=== PATIENT | male | born 1980 | race Caucasian/White ===

== ENCOUNTER 2023-07-23 08:39 | Emergency (ER) | payer BC, SELFPAY ==
[2023-07-23 08:48] VITALS: BP 130/92
--- NOTE | 2023-07-23 11:14 | ED.GENMED ---
History of Present Illness
General
Chief Complaint: Breathing Problem
Source: patient
Exam Limitations: none
Time Seen by Provider: 07/23/23 11:14
Nursing documentation reviewed up to this point in time: agreed with
Travel History
Have you had any contact with someone who has COVID-19?: No
Do you have any symptoms of coronavirus? Fever > 100 degrees, chills, cough, shortness of breath, sore throat, loss of taste or smell, muscle aches, or headache?: No
History of Present Illness
History of Present Illness:
43-year-old male with no past medical history presenting to the emergency department today with concerns of low pulse ox. Patient states that he has had a productive cough and fevers and body aches for the past few days. Patient went to urgent
care yesterday and was diagnosed with pneumonia and started on Levaquin. Patient states that he was told to report to the emergency department should he have a pulse ox below 93. Patient states that at times she will feel a bit short of breath but
in general feels well. Patient notes that sometimes he will get lightheaded and believes this is related to the fever. Patient denies any redness, swelling, or pain legs. Patient denies any abdominal pain, nausea, vomiting. Patient denies any
chest pain, hemoptysis.
Review of Systems
Review of Systems
All Other Systems: ROS reviewed and negative except as documented in HPI and ROS
Phy Exam
Physical Exam
Physical Exam:
General: Patient is well appearing and in no acute distress; non-toxic
Skin: Warm and dry, no rashes or lesions
Head: Normocephalic, atraumatic.
Eyes: Sclera non-icteric. EOMs intact. PERRLA.
Cardiac: Regular rate and rhythm, no murmurs
Peripheral Vascular: No lower extremity swelling or edema
Pulm: Normal respiratory effort, diffuse rhonchi appreciated that clears with coughing
Abdomen: No abdominal tenderness to palpation
Neuro: CN II-XII intact, no focal neurologic deficits.
Psychiatric: Appropriate mood and affect.
Course
Orders/Labs/Results
Orders:
Orders
07/23/23 08:56
Chest [CR Chest - 2 Views ] Urgent
Comment:
Reason For Exam: SOB
07/23/23 08:56
07/23/23 08:56
Vital Signs
Initial and Last Documented VS:
Initial Vital Signs
Temp Pulse Resp BP Pulse Ox
98.5 F 93 18 130/92 96
07/23/23 08:48 07/23/23 08:48 07/23/23 08:48 07/23/23 08:48 07/23/23 08:48
Last Documented Vital Signs
Temp Pulse Resp BP Pulse Ox
98.5 F 93 18 130/92 96
07/23/23 08:48 07/23/23 08:48 07/23/23 08:48 07/23/23 08:48 07/23/23 08:48
MDM/Problems Addressed
Differential Diagnosis Includes:
pneumonia
MDM/Problems Addressed:
low pulse ox
Chronic conditions affecting care:
n/a
Acute Exacerbation and/or Progression of Chronic Illness:
n/a
*Radiology
Radiology exam reviewed: preliminary read by ED provider (lower lobe infiltrate noted in lateral view)
*Pulse Oximetry
Patient hypoxic: no
*Critical Care Note
Total Time (30-74mins, 75-104mins- exclusive of procedures): Not Applicable
Data Reviewed
Review of Other/Old Records Reveals: Records (no previous ER records to review) and Discharge Summary (no discharge summaries to review in [facility])
Source: patient
Prescriptions/Medications Considered But Not Given:
Considered course of steroids
Patient Management
Escalation/DeEscalation of care consider admission/obs:
43-year-old male with no past medical history presenting to the emergency department today with concerns of low pulse ox. Patient has no pneumonia and is on day 2 of Levaquin. He was told report to emergency department should his pulse ox dropped
below 93%. Patient has significant shortness of breath, he is very well-appearing, does have rhonchi noted on exam but is not appear to be in any acute respiratory distress. Patient has exercise-induced asthma when he was younger and still has
some albuterol inhalers left over. I advised patient to continue to monitor symptoms and to continue his Levaquin. Patient was advised to try using his albuterol. No indication for labs at this time. Reviewed case with my attending .
Berenice who is in agreement with plan and also personally evaluated patient. Return precautions given, patient stable for discharge
ED Attending Note
-
Portions of this chart may have been created with voice recognition software.� Occasional wrong word or��sound alike� substitutions may have occurred due to the inherent limitations of voice recognition software.
Discharge Plan
Departure
Patient Disposition: Home (Routine Discharge)
Date of Disposition: 07/23/23
Time of Disposition: 11:50
Patient with high blood pressure during this ER visit?: Yes
Condition: Good
Discharge Problem:
Community acquired pneumonia
Instructions: Pneumonia in adults, BLOOD PRESSURE
Referrals:
Tru Moore, [Family Provider] -
Activity Restrictions/Additional Instructions:
Please continue Levaquin as directed. Please stay well hydrated.
Please return to the emergency department if you experience chest pain, shortness of breath, intractable fevers, coughing up blood, or any other concerning signs or symptoms.
Please follow up with your primary care provider in one week.
Interventions
Interventions:
*Risk Screen - Suicide Last Done: 07/23/23 12:04
*General Assessment Last Done: 07/23/23 12:04
*Neglect/Abuse Screening Last Done: 07/23/23 12:04
ED- Fall Risk Assessment Last Done: 07/23/23 12:04
*ED COVID-19 Vaccine History Last Done: 07/23/23 12:04
*Nursing Disposition Last Done: 07/23/23 12:04
ED- Cardiac Assessment Last Done: 07/23/23 12:04
ED- Pulmonary Assessment Last Done: 07/23/23 12:04
Discharge Date and Time
Discharge Date/Time: 07/23/23 12:05
Print Language: CHINESE
== END 2023-07-23 12:05 | disposition home or self-care (01) ==
LOC: EMR 08:39
PROVIDERS: EMERGENCY PHYSICIAN Emergency Medicine; FAMILY PHYSICIAN Internal Medicine
DX: J18.9 Pneumonia, unspecified organism (principal)
CPT/HCPCS: 99283; 71046

== ENCOUNTER 2024-01-23 16:52 | Emergency (ER) | payer BC, SELFPAY ==
[2024-01-23 17:11] VITALS: BP 151/90
[2024-01-23 17:32] LABS: % Basophils 0.5 % (0-2); % Eosinophils 4.2 % (0-6); % Immature Granulocytes 0.3 % (0-0.5); % Lymphocytes 24.4 % (20.5-51.1); % Monocytes 7.1 % (1.7-9.3); % Neutrophils 63.5 % (42.2-75.2); Absolute Eosinophils 0.3 10^3/uL (0-0.7); Absolute Lymphocytes 1.9 10^3/uL (1.2-3.4); Absolute Monocytes 0.6 10^3/uL (0.1-0.6); Hematocrit 40.1 % (39.0-52.0); Hemoglobin 13.7 g/dL (13.0-18.0); Mean Corp Hgb Conc. 34.2 g/dL (33.0-37.0); Mean Corpuscular Hgb 30.2 pg (27.0-31.0); Mean Corpuscular Volume 88.3 fL (80.0-94.0); Mean Platelet Volume 9.3 fL (7.4-10.4); Nucleated Red Blood Cells % 0 % (-); Platelet Count 321 10^3/uL (130-400); Red Blood Cell Count 4.54 10^6/uL (4.70-6.10); Red Cell Dist. Width 12.2 % (11.5-14.5); White Blood Cell Count 7.9 10^3/uL (4.8-10.8)
[2024-01-23 17:33] LABS: Urine Albumin Trace (Neg - Trace); Urine Bilirubin Negative (Negative); Urine Character Clear (Clear); Urine Color Yellow; Urine Glucose Negative (Negative); Urine Ketone Trace (Negative); Urine Leukocyte Negative (Negative); Urine Nitrite Negative (Negative); Urine Occult Blood Negative (Negative); Urine Specific Gravity 1.025 (<1.030); Urine Urobilinogen 1+ (Neg - 1+)
[2024-01-23 17:49] LABS: ALT (SGPT) 24 U/L (0-50); AST (SGOT) 22 U/L (17-59); Albumin 4.8 g/dl (3.5-5.0); Alkaline Phosphatase 48 U/L (38-126); Blood Urea Nitrogen 23 mg/dl (9-20); Calcium 9.5 mg/dl (8.4-10.2); Carbon Dioxide 30 mmol/L (22-30); Chloride 102 mmol/L (98-107); Glucose 99 mg/dl (70-99); Potassium 4.1 mmol/L (3.5-5.1); Sodium 144 mmol/L (135-145); Total Bilirubin 0.8 mg/dl (0.2-1.3); Total Protein 7.1 g/dl (6.3-8.2); eGFR > 60.00
--- NOTE | 2024-01-23 21:09 | ED.GENMED ---
History of Present Illness
General
Chief Complaint: Back Pain
Time Seen by Provider: 01/23/24 20:59
History of Present Illness
History of Present Illness:
TIME OF INITIAL ENCOUNTER: 9:15 PM
HPI: The patient presents with a few days of low back pain. He also had some concern for blood in the urine. He was in [place] when symptoms worsened and he ended up cutting his conference short to come back here for further evaluation.
EXAM:
GENERAL: Well appearing in no distress, athletic build
HEENT: Moist oral mucosa
CARDIOVASCULAR: No murmurs, normal heart rate, regular rhythm, No chest wall tenderness
PULMONARY: No respiratory distress, breath sounds are clear and equal
ABDOMEN: Soft with no peritoneal signs, no tenderness
NEUROLOGIC: Excellent strength all extremities, no coordination deficits
PSYCHIATRIC: Appropriate mental status, normal insight and judgement
EXTREMITIES: Nontender, no edema, moves all extremities equally
SKIN: No rash, no lesions
NUMBER AND COMPLEXITY OF PROBLEMS ADDRESSED AT THE ENCOUNTER
� Chronic conditions affecting care: GERD
� Acute Exacerbation and/or Progression of Chronic Illness: This is an acute problem
� Differential Diagnosis includes: Sciatica, musculoskeletal back pain, ureteral stone, UTI/pyelonephritis
AMOUNT AND/OR COMPLEXITY OF DATA TO BE REVIEWED AND ANALYZED
� I performed an independent evaluation of and my interpretation is:
EKG:
CT: CT shows a small left renal stone but no ureteral stone.
X-rays:
Laboratory Studies: Urinalysis shows trace ketones with no blood nor signs of infection, renal function normal, white count normal, hemoglobin level normal
Other:
� Review of other/old records: I reviewed records�I saw this patient when he had pneumonia in July of this year in the Emergency Department
� Clinical information was obtained by an independent historian: None needed
� Prescriptions/Medications Considered but not given:
� Further testing considered but not performed:
RISK OF COMPLICATIONS AND/OR MORBIDITY OR MORTALITY OF PATIENT MANAGEMENT
� Social determinants of health affecting care: Lives at home
� Discussion with other providers:
� Escalation of care including admission/observation vs risk of discharge considered: The patient is very comfortable in appearance. CT imaging and lab work is reassuring. I did inform him of the very small left intrarenal
stone but this would not be the cause of his pain tonight.
ANY OTHER UPDATES:
Phy Exam
Physical Exam
Physical Exam:
See HPI
Course
Orders/Labs/Results
Orders:
Orders
01/23/24 17:15
CT Abd/pel Without Iv Or Oral Urgent
Comment:
Reason For Exam: left flank pain radiates to groin area
01/23/24 17:23
Complete Blood Count/With Diff Urgent
Comprehensive Metabolic Panel Urgent
Urinalysis Reflex To Culture Urgent
Date Specimen was Collected: 01/23/24
Time Specimen was Collected: 17:15
Abnormal Lab Results
01/23/24
17:23
RBC 4.54 L 10^6/uL
(4.70-6.10)
BUN 23 H mg/dl
(9-20)
Urine Ketones Trace A
(Negative)
01/23/24 17:23
01/23/24 17:23
Vital Signs
Initial and Last Documented VS:
Initial Vital Signs
Temp Pulse Resp BP Pulse Ox
36.7 C 77 16 151/90 98
01/23/24 17:11 01/23/24 17:11 01/23/24 17:11 01/23/24 17:11 01/23/24 17:11
Last Documented Vital Signs
Temp Pulse Resp BP Pulse Ox
36.7 C 77 16 151/90 98
01/23/24 17:11 01/23/24 17:11 01/23/24 17:11 01/23/24 17:11 01/23/24 17:11
*Critical Care Note
Total Time (30-74mins, 75-104mins- exclusive of procedures): Not Applicable
ED Attending Note
-
Portions of this chart may have been created with voice recognition software.� Occasional wrong word or��sound alike� substitutions may have occurred due to the inherent limitations of voice recognition software.
Discharge Plan
Departure
Patient Disposition: Home (Routine Discharge)
Date of Disposition: 01/23/24
Time of Disposition: 21:20
Patient with high blood pressure during this ER visit?: Yes
Discharge Problem:
Low back pain
Instructions: Low Back Pain (DC), BLOOD PRESSURE
Referrals:
Conrad Moore, DO [Family Provider] -
Activity Restrictions/Additional Instructions:
The cause of your pain is unclear but does not appear to be related to a kidney stone. Your white blood cell count, hemoglobin, kidney function are all normal. There is no blood noted in the urinalysis, there is a trace amount of ketones in the
urine but no sign of infection. The CAT scan showed a 1.5 mm stone inside of the left kidney�this would not be the cause of your pain. Kidney stones do not cause pain unless they get stuck in the ureter. There is no abnormality to either your
ureters based on the CAT scan tonight. Please follow-up with your primary care doctor. I recommend 3-4 [id number] ibuprofen (Motrin) every 8 hours with food for a few days. Return here if worse.
Interventions
Interventions:
*Risk Screen - Suicide Last Done: 01/23/24 17:14
*Neglect/Abuse Screening Last Done: 01/23/24 17:14
Discharge Date and Time
Print Language: [place]OREAN
[2024-01-23 21:36] VITALS: BP 148/105
== END 2024-01-23 21:38 | disposition home or self-care (01) ==
LOC: EMR 16:52
PROVIDERS: Emergency Medicine; EMERGENCY PHYSICIAN Emergency Medicine; FAMILY PHYSICIAN Family Medicine Sports Medicine
DX: M54.50 Low back pain, unspecified (principal); R03.0 Elevated blood-pressure reading, without diagnosis of hypertension
CPT/HCPCS: 99284; 74176; 80053; 81003; 85025